=== PATIENT | female | born 1985 | race Two or more races ===

== ENCOUNTER 2019-03-20 16:52 | Inpatient (IN) ==
[2019-03-20] MEDS ORDERED: NUBAIN INJ 200 MG VIAL MULTIDOSE IVP PRN (16:59)
[2019-03-20] MEDS ORDERED: PITOCIN IVP ONE (16:59)
[2019-03-20] MEDS ORDERED: D5LR 1L W PITOCIN 10 UNITS/L 10 UNITS/1,000 ML BAG IV PRN (16:59)
[2019-03-20] MEDS ORDERED: D5 1/2 NS 1000 ML 1,000 ML IV SCH (17:00)
[2019-03-20] MEDS ORDERED: D5LR 1L W PITOCIN 10 UNITS/L 10 UNITS/1,000 ML BAG IV ONE (17:10)
[2019-03-20] MEDS ORDERED: LR 1000 ML IV 1,000 ML IV ONE (17:10)
[2019-03-20] MEDS ORDERED: D5 1/2 NS 1L W PITOCIN 20 UNITS/L 20 UNITS/1,000 ML BAG IV ONE (17:11)
[2019-03-20] MEDS ORDERED: D5 1/2 NS 1000 ML 1,000 ML IV ONE (17:11)
[2019-03-20] MEDS ORDERED: NAROPIN EPIDURAL 0.2% + FENTANYL 90MCG 60 ML EPI ONE (17:11)
[2019-03-20] MEDS ORDERED: FENTANYL INJ 100 mcg ONE (17:11)
[2019-03-20] MEDS ORDERED: PITOCIN ONE (17:12)
[2019-03-20 17:24] LABS: BASOPHILS % (AUTO) 0.4 % (0.2-1.0); EOSINOPHILS % (AUTO) 0.3 % (0.9-2.9); HEMATOCRIT 27.8 % (36.0-47.0); HEMOGLOBIN 8.8 g/dL (12.0-16.0); LYMPHOCYTES # (AUTO) 2.3 X10^3/uL (1.3-2.9); MEAN CORPUSCULAR HEMOGLOBIN 23.4 pg (27.0-34.0); MEAN CORPUSCULAR HGB CONC 31.7 g/dL (33.0-35.0); MEAN CORPUSCULAR VOLUME 73.8 fL (80.0-100.0); MEAN PLATELET VOLUME 9.4 fL (7.4-11.0); MONOCYTES # (AUTO) 0.3 x10^3/uL (0.3-0.8); NEUTROPHILS # (AUTO) 4.6 x10^3/uL (2.2-4.8); NEUTROPHILS % (AUTO) 63.3 % (42.0-75.0); PLATELET COUNT 218 X10^3/uL (150.0-450.0); RED BLOOD COUNT 3.77 X10^6/uL (3.5-5.4); RED CELL DISTRIBUTION WIDTH 17.6 % (11.6-16.5); WHITE BLOOD COUNT 7.2 X10^3/uL (3.6-10.0)
[2019-03-20 17:24] LABS: BILIRUBIN,URINE NEGATIVE (NEGATIVE); BLOOD/HEMOGLOBIN,URINE 3+ (NEGATIVE); GLUCOSE, URINE NEGATIVE (NEGATIVE); KETONES,URINE NEGATIVE (NEGATIVE); LEUKOCYTE ESTERASE ,URINE NEGATIVE (NEGATIVE); NITRITES,URINE NEGATIVE (NEGATIVE); PROTEIN,URINE NEGATIVE (NEGATIVE); UROBILINOGEN,URINE NORMAL (NORMAL)
[2019-03-20 17:29] LABS: APPEARANCE,URINE SLIGHTLY HAZY (CLEAR); COLOR,URINE YELLOW (YELLOW)
[2019-03-20 17:30] LABS: BACTERIA,URINE 1+ /HPF (NEGATIVE); SQUAMOUS EPITHELIAL CELL,UR FEW /HPF (NEGATIVE)
[2019-03-20 17:33] LABS: BLOOD UREA NITROGEN 9 mg/dL (7-18); CALCIUM 8.7 mg/dL (8.5-10.1); CARBON DIOXIDE 20.4 mmol/L (21-32); CHLORIDE 100 mmol/L (98-107); CREATININE 0.75 mg/dL (0.55-1.02); SODIUM 136 mmol/L (136-145); eGFR NON BLACK RACES > 60 (>60)
[2019-03-20 17:40] LABS: ANISOCYTOSIS SLIGHT; HYPOCHROMASIA 1+; MICROCYTOSIS SLIGHT; PLATELET MORPHOLOGY COMMENT NORMAL (NORMAL)
[2019-03-20] MEDS ORDERED: MOTRIN TAB 800 MG PO PRN (22:00)
[2019-03-20] MEDS ORDERED: PHENERGAN INJ 25 MG IM PRN (22:00)
[2019-03-20] MEDS ORDERED: D5 1/2 NS 1000 ML 1,000 ML with PITOCIN 20 UNITS IV SCH ×2 (22:00)
[2019-03-20] MEDS ORDERED: DERMOPLAST SPRAY TOP PRN (22:36)
[2019-03-20] MEDS ORDERED: ADACEL or BOOSTRIX TDaP VACCINE IM ONE (22:36)
[2019-03-20] MEDS ORDERED: MILK OF MAGNESIA PO PRN (22:36)
[2019-03-20] MEDS ORDERED: AMBIEN PO PRN (22:36)
[2019-03-21] MEDS ORDERED: HEMABATE IM ONE ×2 (02:49→02:51)
[2019-03-21 05:14] LABS: HEMATOCRIT 24.6 % (36.0-47.0); HEMOGLOBIN 7.7 g/dL (12.0-16.0)
[2019-03-21] MEDS: ZANTAC PO SCH ×2 (09:05→20:31)
[2019-03-21] MEDS: PRENATAL PLUS PO SCH (09:05)
[2019-03-21] MEDS ORDERED: NS 100 ML IV 100 ML with VENOFER 400 MG IV NR ×2 (09:07)
[2019-03-21] MEDS ORDERED: NS 250 ML IV 250 ML IV ONE (10:21)
[2019-03-22] MEDS: ZANTAC PO SCH (09:49)
[2019-03-22] MEDS: PRENATAL PLUS PO SCH (09:50)
[2019-03-22 12:57] VITALS: BP 127/84
== END 2019-03-22 14:45 | disposition home or self-care (01) | DRG 807 ==
LOC: LD 16:52 → MED/SURG 22:38
PROVIDERS: ADMIT Obstetrics & Gynecology Obstetrics; ATTEND Obstetrics & Gynecology Obstetrics
DX: O70.0 First degree perineal laceration during delivery; Z37.0 Single live birth; Z3A.39 39 weeks gestation of pregnancy
CPT/HCPCS: 36415; 59409; 80048; 81001; 85014; 85018; 85025; 86592; 86850; 86900; 86901; A4216; A4222; S0197; J1756; J2590; J3010; J7050; J7120; S5010